=== PATIENT | male | born 1975 | race Caucasian/White ===

== ENCOUNTER 2018-11-13 07:25 | Inpatient (IN) | payer BC, SELFPAY ==
[2018-10-31 10:00] VITALS: BP 176/104; PULSE 70; RESP 16; TEMP 36.6; O2SAT 98; BMI 23.2
--- NOTE | 2018-10-31 10:15 | SDCEKG_ITS ---
Test Reason : Blood Pressure : / mmHG Vent. Rate : 069 BPM Atrial Rate : 069 BPM P-R Int : 150 ms QRS Dur : 074 ms QT Int : 410 ms P-R-T Axes : 070 060 054 degrees QTc Int : 439 ms Normal sinus rhythm with sinus arrhythmia Septal infarct , age undetermined Abnormal ECG When compared with ECG of 31-OCT-2018 10:11, MANUAL COMPARISON REQUIRED, DATA IS UNCONFIRMED Confirmed by JOJO ALANIZ, CL ([id number]), supervising film or videotape editor JEAN LOU ([id number] on 11/01/2018 4:03:41 PM Referred By: Wilfredo Martinez Confirmed By:CL URIBE MD
[2018-10-31 10:51] LABS: Absolute Lymphocyte Count 1.18 X10^3/ul (0.83-4.51); Absolute Neutrophil Count 4.6 X10^3/uL (2.0-7.7); Basophil# 0.02 X10^3/uL; Basophil% 0.3 % (0-1); Eosinophil# 0.03 X10^3/uL; Eosinophils% 0.5 % (0-5); Hematocrit 42.1 % (40-54); Hemoglobin 14.1 g/dl (13.0-16.5); Lymphocyte # 1.18 X10^3/ul (4.0); Lymphocyte % 18.6 % (19-41); Mean Corp Hgb Conc 33.5 g/gl (32-36); Mean Corpuscular Hgb 30.9 pg (27.0-32.0); Mean Corpuscular Volume 92.1 fL (80-94); Mean Platelet Vol. 9.2 fl (6.2-12.0); Monocyte# 0.55 X10^3/uL; Monocyte% 8.7 % (0-10); Neutrophil # 4.56 X10^3/uL (2.7-7.7); Neutrophil % 71.7 % (47-70); POSITIVE COUNT NO; POSITIVE DIFFERENTIAL NO; POSITIVE MORPHOLOGY NO; Platelet Count 301 K/mm3 (150-450); RBC Distribution Width CV 12.3 % (11.6-14.6); RBC Distribution Width SD 41.3 fl (35.1-43.9); Red Blood Count 4.57 M/mm3 (4.6-6.2); White Blood Count 6.4 K/mm3 (4.4-11.0)
[2018-10-31 11:08] LABS: Anion Gap 8 (5-15); BUN 9 mg/dL (7-18); BUN/Creat Ratio 9.4 RATIO (10-20); Chloride 96 mmol/L (98-107); Creatinine, Serum 0.96 mg/dL (0.70-1.30); EST Glomerular Filtration Rate 91 mL/min (>60); Est Glom Filt Rate - Afr Amer 110 mL/min (>60); Estimated Creatinine Clearance 105.67 ml/min; Glucose 106 mg/dL (74-106); Potassium 4.1 mmol/L (3.5-5.1); Sodium Level 129 mmol/L (136-145)
--- NOTE | 2018-10-31 13:19 | HP.PCM_ITS ---
History and Physical DATE OF SURGERY: 11/13/2018 SCHEDULED PROCEDURE: right total hip arthroplasty HISTORY OF PRESENT ILLNESS: This is a 43-year-old male who has been having ongoing pain in his right hip for several years. Pain can reach as high as a 7/10. Pain is aching, sharp, and stabbing. Pain is increased with going up and down stairs, driving, sitting for excision. The time, and walking. He has difficult time with getting dressed. He has fallen, tripped, stumbled due to his right hip pain. Patient states the pain does wake him at night. Patient has had a difficult time with activities of daily living and work duties due to his pain. Patient has tried oral medications consisting of Tylenol and ibuprofen with minimal relief in pain. Patient does drink approximately 2-4 beers a night. He also scuba dives. He denies any history of steroid or medical steroid use chronically. Patient has had MRI of the right hip which does reveal avascular necrosis. Patient denies previous surgery on the right hip. Patient does have medical history pertinent for hypertension. He denies any recent chest pain, shortness of breath, fevers chills, recent infections. We have received surgical clearance from patient's primary care physician. After failing conservative measures and discussing all treatment options with Dr. Wilfredo Martinez, the patient would like to proceed with a right total hip arthroplasty. REVIEW OF SYSTEMS: ROS: Const: Denies anorexia, anxiety, change in appetite, fever and weight change,hard of hearing, and vision problems. CV: Denies chest pain, heart murmur, irregular heartbeat and peripheral vascular disease. Resp: Denies asthma, cough, pneumonia, sleep apnea, SOB, tuberculosis and wheezing. GI: Denies constipation, diarrhea, heartburn, nausea, bloody stools and vomiting, and difficulty swallowing. : Urinary: denies incontinence. Musculo: Reports trouble walking and weakness and limp. Skin: Reports history of shingles and tattoo, but denies Raynaud's. Neuro: Reports numbness/tingling but denies ambulatory dysfunction, dizziness and tremor. Psych: Denies anxiety, depression, insomnia, mental illness and stress. Edwin/Lymph: Denies anemia, bleeding/bruising tendency and past transfusion. Reviewed, no changes. PAST MEDICAL HISTORY: Advance Care Plan: No Advance Directives Effective Date: 01/03/2018 PMH: Medical Problems: High Blood Pressure Accidents: Fracture - Nose,foot,ankle, finger Sports Related Injury - Finger FX Surgical Hx: Appendectomy - [facility] RT Knee Arthroscopy - (12/29/2008) JAGUARIC @ [facility] RT Middle Finger Tendon Repair W/Loose Body Removal - (02/04/2014) MPS @ [facility] Knee Arthroscopy LT - (11/13/2015) [email or web address] Anesthesia Complications: None Assistive Devices: None Reviewed and updated. SOCIAL HISTORY: SH: Marital: .Occupation: [place] [employer] .Work Status: Currently Working.Hand Dominance: Right-handed. Personal Habits: Smoking: Patient has never smoked.Cigarette Use: Never Smoked Cigarettes.Alcohol: Occasionally.Drug Use: Denies Use.Enjoy Exercising: Exercises 1-3 x/month. Reviewed, no changes. VITALS: Ht: 71.5 Wt: 164lb Wt k.390 BMI: 22.6 BP: 164/76 Pulse: 64 Resp: 16 T: 98.2 T: 36.8C ALLERGIES: No Known Drug Allergy MEDICATIONS: Lisinopril 20 mg 1po qday PRE-OP EXAM: General appearance:NORMAL Other: Eyes: Conjunctivae and lids: NORMAL Pupils: ERR Ears, Nose, Mouth, and Throat: NORMAL Other: Inspection of lips, teeth and gums: NORMAL Other: Neck: Examination of neck: no masses noted. Respiratory: Assessment of respiratory effort: NORMAL Other: Auscultation of lungs: clear to auscultation no wheezes, rhonchi or rales. Cardiovascular: Auscultation of heart: regular rate and rhythm, no murmurs, gallops or rubs. Exam of carotid arteries: NORMAL Other: Gastrointestinal: Exam of abdomen: soft, nontender, nondistended bowel sounds present. PHYSICAL EXAMINATION: Patient walks with a significant antalgic gait. He has tenderness to palpation over the lateral right hip. Range of motion right hip: Flexion 85, internal rotation 15, external rotation 20. Sensation intact to light touch. Neurovas cularly intact. IMAGING STUDIES: X-rays were obtained at [facility] on October 31, 2018 including 3 views AP pelvis, AP right hip, and crossfire lateral right hip reveals collapsed avascular necrosis of the right hip with subchondral collapse of the femoral head and flattening of the femoral head. Joint spaces significantly narrowed. MRI of the right hip was obtained and does reveal right hip avascular necrosis with femoral head collapse. IMPRESSION: 1. Right hip avascular necrosis 2. Hypertension PLAN: Dr. Wilfredo Martinez did discuss and review with the patient all treatment options including surgical versus nonsurgical options. Patient does wish to proceed with the above-stated procedure. Potential risks, benefits, and complications of the procedure were discussed in detail including but not limited to , infection, nerve and blood vessel damage, persistent pain, numbness, tingling, paresthesias, blood clot, pulmonary embolism, and requirement for possible further surgery. The patient expressed full understanding and has no further questions for the doctor. Patient does agree to proceed with the above-stated procedure and has signed the surgery consent form. This dictation was created using voice recognition software. Phonetic and/or grammatical errors may exist.. ___ I have re-examined the patient. There are no clinical changes since date of exam. ___ See progress notes for changes. ___ Dictated on admission Date: Time: Signature:
[2018-11-13] VITALS (20 sets, daily range): BP systolic 110–151; BP diastolic 66–94; PULSE 49–87; RESP 14–18; TEMP 36.1–37; O2SAT 98–100; BMI 23.2
--- NOTE | 2018-11-13 06:44 | RAD_ITS ---
STUDY: X-RAY - RIGHT HIP REASON FOR EXAM: Male, 43 years old. Right total anterior hip, postoperative. TECHNIQUE: Frontal pelvis, crosstable lateral hip. COMPARISON: None. FINDINGS: The prosthetic components appear to be normally seated and articulated. No acute fracture. Expected postsurgical features in the surrounding soft tissues. No apparent degenerative features of the left hip. RAD/Hip Min 2 Views (Portable) IMPRESSION: Total hip arthroplasty on the right, appropriate postsurgical features. Correlate operative technique. Electronically Signed: Kaushik Travis MD at 13:18 EST Tel , Service support ,
[2018-11-13] MEDS: Scopolamine 1mg/72hr Patch 1 PATCH TD (07:41)
[2018-11-13] MEDS: oxyCODONE HCl Cr 10 MG Tablet PO (07:55)
[2018-11-13] MEDS: Celecoxib 200 MG Capsule 400 MG PO (07:55)
[2018-11-13] MEDS: Acetaminophen 500 MG Tablet 1000 MG PO ×3 (07:55→21:46)
[2018-11-13] MEDS: Lactated Ringers 1,000 ML 999 ML IV (08:15)
[2018-11-13] MEDS: Cefazolin 2 GM in 0.9% Normal Saline 100 ML IV (09:12)
--- NOTE | 2018-11-13 09:30 | RAD_ITS ---
STUDY: X-RAY - RIGHT HIP REASON FOR EXAM: Male, 43 years old. Right total hip arthroplasty. TECHNIQUE: 2 views of the hip. COMPARISON: None. FINDINGS: The prosthetic components appear to be normally seated and articulated. No visible acute fracture. RAD/Hip 1 view with Pelvis IMPRESSION: Appropriate postsurgical features. Correlate operative technique. Electronically Signed: Kaushik Travis MD at 12:56 EST Tel , Service support ,
--- NOTE | 2018-11-13 10:35 | OP.PCM_ITS ---
Report of Operation Date of Procedure: 11/13/18 Pre-Operative Diagnosis: Right hip avascular necrosis Post-Operative Diagnosis: Right hip avascular necrosis Surgery/Procedure Performed:: Right direct anterior total replacement Description of Surgical Findings:: Stable hip with equal leg length coke worker: Rocael Lyons Type of Anesthesia:: Spinal Anesthesiologist: James Mcdowell Special Medications: 2 g Ancef, 1 g TXA at incision, 1 g TXA closure, 10 mg Decadron, joint cocktail (5 mg Duramorph, 30 mL of 0.5% Ropivicaine, 1000 units of epinephrine, 30 mg of Toradol) Specimen's removed: Bony cuts Estimated Blood Loss (mL): 100 Fluids Replaced: 1400 mL crystalloid Description of Procedure: Components used: 1. Accolade 2 Cheryl femoral stem size 7 127? 2. Cheryl trident acetabular shell size 56 mm 3. [place]field X3 polyethylene F 4. [place] Biolox delta 36mm, 0mm femoral head Brief history operative indications: 43 yo M who failed conservative measures for their hip osteoarthritis. X-rays were consistent with osteoarthritis including joint space narrowing, osteophyte formation and subchondral cysts. Total hip replacement was discussed with the patient with risks and benefits including but not limited to blood loss, DVTs, PEs, neurovascular damage, dislocation, general risks of anesthesia including loss of life. Patient demonstrated an understanding medical clearance is obtained the patient was consented for surgery. Procedure: On the date of procedure the patient's R hip was marked in the preoperative area. Patient was then taken back to the operating room where anesthesia assumed control of the C-spine and airway and administered anesthetic. Patient was transferred to the operating table and placed in the supine position. The hips were placed at the break of the bed and a sacral bump was placed. The R lower extremity was then prepped out in a sterile fashion using chlorhexidine while the surgeon scrubbed. The PA was vital in the positioning of the patient. Upon reentering the room the R lower extremity was draped in the standard orthopedic fashion and the incision was marked. A timeout was called and everyone agreed upon the side, the site, the procedure be performed, antibody given, and patient's identity. At this time incision was made through skin, subcutaneous tissue, and fat down to fascia. The fascia was then incised and the TFL was retracted laterally. A retractor was placed on the lateral border of the femoral neck. Attention was directed to the inferior portion of the approach and all crossing vessels were identified and appropriately coagulated. A retractor was then placed on the medial portion of the femoral neck. The anterior capsule was then cleared of all soft tissue and then H shaped capsulotomy was made. The retractors were then placed inside the capsule. The femoral neck was identified and a cleanup cut was made. At this time a power corkscrew was used to remove the femoral head. Attention was then turned toward the acetabulum where the soft tissues were appropriately retracted and the acetabulum was sequentially reamed to 56 mm. A 56 mm cup was then selected and impacted into place. Acetabular liner was impacted into place and locking mechanism was verified. The position of the acetabular cup was then verified under live fluoroscopy. Attention was then turned to the femur. Soft tissue releases on the medial and lateral femoral neck were appropriately done, the leg was externally rotated and lateralized. A Eckert retractor was placed medially and proximally to the greater trochanter this allowed appropriate visualization and exposure of the femoral canal. Rongeour was then used to remove excess lateral bone. A canal finder and entry broach were used to open the proximal canal. Once we verified we were down the femoral canal we subsequently broached up to a size 7 femur. The appropriate neck was placed in the previously selected head was trialed with a 0 mm neck. Traction was pulled and the hip was reduced with internal rotation. Once it was appropriately reduced and stability was checked. There was minimal shuck, equal leg lengths and appropriate stability with hyperextension and external rotation as well as with 90? flexion and internal rotation. Fluoroscopy was then also used to verify the position of the components and leg lengths using the contralateral side for comparison. The trial components were then dislocated the proximal femur was again exposed and the components were removed from the wound. The final components were verified and opened. The wound was copiously irrigated out with normal saline. The acetabulum was checked for any residual debris. The final components were placed and impacted. Traction and internal rotation were again used to reduce the hip. After adequate reduction the hip remained stable with appropriate leg lengths. The final components were once again checked with live fluoroscopy and were found to be satisfactory. The wound was then copiously irrigated with normal saline once more, and hemostasis was obtained. Closure was then done using #1 Vicryl runner to close the fascia. A 2-0 vicryl interuppted sutures were used to close the subcutaneous skin. A 3-0 Monocryl and Steri-Strips were used for final skin closure. A Silverlon dressing was placed. Patient was awakened by anesthesia and transferred to the [facility]. Patient was then transferred to the PACU for recovery. Postoperative plan: Patient will get 24 hours postop antibiotics. Patient will get in-house physical therapy and will be weight-bear as tolerated. Patient will follow up in office in 2 weeks for a wound check and x-rays. During the course of the procedure the physician assistant counsel played a vital role. His intimate knowledge of my steps in the procedure aided in safe and expedient completion of the procedure. The PA played a vital rolls in positioning particularly in obtaining the appropriate positioning of the sacral bump. The PA was also vital in the retraction of soft tissues during the exposure and especially the femoral work as this is a vital part of the procedure to prevent complications and fractures. The PA was also vital and protecting soft tissues during times of bony cuts and reaming. He also played a vital role in closure with my direct supervision. The PA was also important during reduction and dislocation of the joint and trials intraoperatively. Grafts/Implants Used: Chesterfield Trident 2, Accolade 2 - Complications None - Admit VTE Documentation VTE Present on Admission: No VTE Mechan Device Prophylaxis: SCD's, Thigh High JESSICA Hose VTE Pharm Prophylaxis ordered?: Yes
[2018-11-13] MEDS: Lactated Ringers 1,000 ML 125 ML IV ×2 (13:00→21:22)
[2018-11-13] MEDS: Ketorolac 15 MG/ML Vial IV (14:56)
[2018-11-13] MEDS: oxyCODONE 5 MG Tablet PO ×2 (17:37→21:46)
[2018-11-13] MEDS: Cefazolin 1 GM/50 ML BAG IV (17:39)
[2018-11-13] MEDS: Senna/Docusate Sodium 1 Tablet 2 TABLET PO (21:46)
[2018-11-13] MEDS: Aspirin 81 MG TAB.CHEW PO (21:47)
[2018-11-13] MEDS: Meloxicam 7.5 MG Tablet PO (21:47)
[2018-11-14] MEDS: Ketorolac 15 MG/ML Vial IV (02:21)
[2018-11-14] MEDS: Cefazolin 1 GM/50 ML BAG IV (02:21)
[2018-11-14 02:27] VITALS: BP 139/82; PULSE 51; RESP 16; TEMP 36.1; O2SAT 98
[2018-11-14 05:53] LABS: Hematocrit 33.1 % (40-54); Hemoglobin 11.2 g/dl (13.0-16.5); Mean Corp Hgb Conc 33.8 g/gl (32-36); Mean Corpuscular Hgb 31.1 pg (27.0-32.0); Mean Corpuscular Volume 91.9 fL (80-94); Mean Platelet Vol. 9.2 fl (6.2-12.0); Platelet Count 286 K/mm3 (150-450); RBC Distribution Width CV 11.5 % (11.6-14.6); RBC Distribution Width SD 37.5 fl (35.1-43.9); White Blood Count 13.4 K/mm3 (4.4-11.0)
[2018-11-14 05:55] LABS: Scan Indicated on CBC? Y/N NO
[2018-11-14] MEDS: Lactated Ringers 1,000 ML 125 ML IV (05:59)
[2018-11-14 06:01] LABS: Anion Gap 9 (5-15); BUN 10 mg/dL (7-18); BUN/Creat Ratio 10.9 RATIO (10-20); Calcium,Total 8.7 mg/dL (8.5-10.1); Chloride 100 mmol/L (98-107); Creatinine, Serum 0.92 mg/dL (0.70-1.30); EST Glomerular Filtration Rate 95 mL/min (>60); Est Glom Filt Rate - Afr Amer 115 mL/min (>60); Estimated Creatinine Clearance 110.27 ml/min; Glucose 92 mg/dL (74-106); Potassium 4.3 mmol/L (3.5-5.1); Sodium Level 135 mmol/L (136-145)
--- NOTE | 2018-11-14 06:39 | PCM.PN.ORT ---
Subjective: The patient was sitting in bed upon examination. Patient denies any chest pain, shortness of breath, dizziness, lightheadedness, nausea or vomiting, or calf pain. Pain is controlled on medications. No adverse overnight events. Patient is wishing to go home today. Overall he is doing well. Objective: Vital signs stable and afebrile. Patient is able to plantarflex and dorsiflex actively. Sensation is intact to light touch to saphenous, sural, superficial and deep peroneal, and tibial distribution. Dressing is clean dry and intact. Negative Homans bilaterally, negative signs and symptoms of DVT. - Physical Exam General: Alert, Oriented x3, Cooperative, No apparent distress Vital Signs Temp Pulse Resp BP Pulse Ox 97 F L 51 L 16 139/82 H 98 11/14/18 02:27 11/14/18 02:27 11/14/18 02:27 11/14/18 02:27 11/14/18 02:27 Oxygen Delivery Method Room Air Weight: 75.6 kg Body Mass Index (BMI) 23.2 Intake and Output for Last 24 Hours 11/12/18 11/13/18 11/14/18 23:59 23:59 23:59 Intake Total 2450 / 2450 1501 / 1501 Output Total 650 / 650 Balance 1800 / 1800 1501 / 1501 Laboratory Tests Past 24 Hrs 11/14/18 11/14/18 05:28 05:28 WBC 13.4 H RBC 3.60 L Hgb 11.2 L Hct 33.1 L MCV 91.9 MCH 31.1 MCHC 33.8 RDW 11.5 L RDW Differential 37.5 Plt Count 286 MPV 9.2 Sodium 135 L Potassium 4.3 Chloride 100 Carbon Dioxide 26.0 Anion Gap 9 BUN 10 Creatinine 0.92 Estim Creat Clear Calc 110.27 Est GFR (MDRD) Af Amer 115 Est GFR (MDRD) Non-Af 95 BUN/Creatinine Ratio 10.9 Glucose 92 Calcium 8.7 Medical Necessity - Tobacco Use Smoking Status: Former smoker Assessment/Plan All Active Problems Chest pain (Acute) 1. S/P right direct anterior total hip arthroplasty POD #1 2. Continue Pain Medications: Tylenol and OxyIR 3. DVT Prophylaxis: Aspirin 81 mg twice daily for DVT prophylaxis times 4 weeks 4. PT/OT: Weightbearing as tolerated 5. H & H: 11.2/33.1, asymptomatic 6. Reactive leukocytosis: Currently 13.4, afebrile. Patient did receive Decadron intraoperatively 7. Encouraged Incentive Spirometry 8. Disposition: Plan will be for discharge home today. Patient [facility]. Patient will follow-up per postop instructions. Patient was instructed that he is not to take any of pain medications with alcohol. He voiced understanding agreement.
--- NOTE | 2018-11-14 06:46 | DCINST_ITS ---
Discharge Diet: No Restrictions Discharge Activity: May Not Drive - while taking narcotic pain medications. May shower in (days): 1 - Turned dressing away from water Ice area for (Minutes): 20 - Every 1-2 hours while awake Weight Bearing Status: Weight bearing as tolerated Elevate: Operative Extremity Additional Activity Instructions:: Wear elastic stockings for 2 weeks. DO NOT use alcohol with narcotic pain medication. DO NOT make important decisions while taking narcotic medication. If you have problems with taking your medication (rash, itching, nausea, etc.) call the office at once. Call your doctor if your incision/area has: Increased Pain/ Swelling, Increased Redness, Foul Smelling Discharge Call your doctor if you observe: Fever of 101 or Higher Remove Dressing in (days):: 3 Additional Instructions: Follow-up per [facility] postop instructions While taking pain medications, do not consume any alcohol while on these medications Allergies/Adverse Reactions: Allergies No Known Allergies Allergy (Verified 10/31/18 09:53) Medications to take at Discharge Lisinopril 20 mg PO DAILY 10/31/18 Acetaminophen [Tylenol] 1,000 mg PO Q8 #90 tablet 11/14/18 Aspirin [Aspirin, Baby] 81 mg PO BID #60 tab.chew 11/14/18 Famotidine [Pepcid] 20 mg PO DAILY #30 tablet 11/14/18 Meloxicam [Mobic] 7.5 mg PO BID #60 tablet 11/14/18 Oxycodone [Oxyir] 5 - 10 mg PO Q4H PRN PRN 5 Days #60 tablet 11/14/18 Senna/Docusate Sodium [Senokot-S] 2 tablet PO BID #20 tablet 11/14/18 The following prescriptions were given: Oxycodone [Oxyir] 5 - 10 mg PO Q4H PRN PRN 5 Days #60 tablet PRN Reason: Mod-Severe Pain (4-10/10) Acetaminophen [Tylenol] 1,000 mg PO Q8 #90 tablet Famotidine [Pepcid] 20 mg PO DAILY #30 tablet Aspirin [Aspirin, Baby] 81 mg PO BID #60 tab.chew Meloxicam [Mobic] 7.5 mg PO BID #60 tablet Senna/Docusate Sodium [Senokot-S] 2 tablet PO BID #20 tablet Primary Care Physician: Daija Art PA [Primary Care Provider] - Test Results: Test results from this visit will be discussed in further detail at your follow- up appointment, if applicable. Please Follow Up With: [facility] When: 11/16/18 @ 8:00 am Please Follow Up With: Rocael Lyons PA-C When: 11/26/18 @ 9:00 am
[2018-11-14] MEDS: Acetaminophen 500 MG Tablet 1000 MG PO (06:50)
[2018-11-14] MEDS: oxyCODONE 5 MG Tablet PO ×2 (06:51→11:35)
[2018-11-14 07:30] VITALS: BP 121/78; PULSE 59; RESP 16; TEMP 36.6; O2SAT 99
[2018-11-14 08:28] VITALS: O2SAT 97
[2018-11-14] MEDS: Aspirin 81 MG TAB.CHEW PO (10:17)
[2018-11-14] MEDS: Lisinopril 20 MG Tablet PO (10:18)
[2018-11-14] MEDS: Senna/Docusate Sodium 1 Tablet 2 TABLET PO (10:18)
[2018-11-14] MEDS: Famotidine 20 MG Tablet PO (10:18)
[2018-11-14] MEDS: Meloxicam 7.5 MG Tablet PO (10:18)
--- NOTE | 2018-11-14 10:40 | CASEMGMT ---
CARLOS DIXON Face to Face with patient for initial transition planning/care coordination assessment. RN ZACK introduced self and role at [facility]. Patient lying in bed, alert and oriented. Patient willing to participate in assessment and is able to answer all questions appropriately. Care providers, pharmacy, and demographics verified. Patient wishes to discharge home and is setup with [facility] for outpatient therapy beginning Monday11/16/18 with family providing transportation. Patient states he has no further needs or concerns at this time. CM to follow for discharge planning needs that may arise. PCP: [facility] Specialists: None Preferred Pharmacy: [facility] Insurance: [place] Prescription Benefit: yes Living Will/HPOA: None LNOK: Living Arrangements: Patient lives with in split level home with railings on stairs. Patient is independent at home. Transportation: Family DME/HHC: Patient has shower chair, toilet riser, cane, and walker at home. Denies oxygen, neb, bipap, or cpap. Patient states he has outpatient therapy scheduled for Monday with [facility]. Disposition Plan: Patient to discharge home with outpatient therapy, family support, and follow-up plans in place. Nelida KONG, RN, CM
[2018-11-14 13:49] VITALS: BP 108/57; PULSE 75; RESP 16; TEMP 37; O2SAT 97
== END 2018-11-14 14:15 | disposition home or self-care (01) | DRG 470 ==
PROVIDERS: Admitting Provider Specialist; Family Provider Physician Assistant; PCP Physician Assistant; Referring Provider Specialist; Visit Provider Specialist
PROC: 0SR904A Replacement of Right Hip Joint with Ceramic on Polyethylene Synthetic Substitute, Uncemented, Open Approach (ICD-10-PCS; CPT 27284; principal; 2018-11-13 09:05)
DX: M87.851 Other osteonecrosis, right femur (principal); I10 Essential (primary) hypertension; Z87.891 Personal history of nicotine dependence
CPT/HCPCS: 36415; 73501; 73502; 76000; 80048; 85025; 85027; 87081; 93005; 94762; 97110; 97162; 97165; 97530; 97802; 99251; C1776; J7120; A4216; G0463

== ENCOUNTER 2019-06-26 20:27 | Inpatient (IN) | payer BC, SELFPAY ==
[2018-11-13 14:21] VITALS: BMI 23.2
[2019-06-26 20:28] VITALS: BP 129/81; PULSE 74; RESP 18; TEMP 36.6; O2SAT 100; BMI 20.9
--- NOTE | 2019-06-26 22:02 | ED.RN ---
PT C/O CRAMPING IN HANDS, LEGS, AND ABD AREA. DENIES PAIN AT THIS TIME.
--- NOTE | 2019-06-26 22:19 | EKG12_ITS ---
Test Reason : HEAT EXHAUSTION Blood Pressure : / mmHG Vent. Rate : 057 BPM Atrial Rate : 057 BPM P-R Int : 140 ms QRS Dur : 082 ms QT Int : 444 ms P-R-T Axes : 051 068 068 degrees QTc Int : 432 ms Sinus bradycardia Otherwise normal ECG Confirmed by BENNY ALANIZ, GORDO ([id number]), continuity editor RANDALL GAMBINO ([id number]) on 06/28/2019 11:45:54 AM Referred By: NAHEED Confirmed By:BUD ZAPATA MD
--- NOTE | 2019-06-26 22:19 | ED.VIS.GEN ---
History of Present Illness Chief Complaint: Dizziness Narrative: Patient is a 44-year-old male who presents with nausea vomiting and muscle aches. 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 It was unusually hot for the time of year today. He began to feel lightheaded while at work. He was trying to drink plenty of water and then drank some Gatorade but vomited. He has had multiple episodes of nonbloody nonbilious emesis today. No diarrhea. He also complains of diffuse myalgias and muscle cramping. No chest pain or shortness of breath no abdominal pain. No fevers. No recent illness. He is treated for hypertension but denies any other medical history. Past Medical History - Allergies and Home Meds Allergies/Adverse Reactions: Allergies No Known Allergies Allergy (Verified 06/26/19 20:31) Primary Care Physician: Daija Art PA [Primary Care Provider] - Past Medical History: - - Hypertension Smoking Status: Never smoker Review of Systems All systems negative except as indicated General: Denies: Fever Cardiovascular: Denies: Chest pain Respiratory: Denies: Dyspnea Gastrointestinal: Reports: Nausea, Vomiting. Denies: Abdominal pain, Diarrhea Musculoskeletal: Reports: Myalgias Neurological: Reports: - - Lightheaded Physical Exam Vital Signs/Narrative: Vital Signs Temp Pulse Resp BP Pulse Ox 06/26/19 20:28 97.9 F 74 18 129/81 H 100 Inital Vital Signs reviewed: Yes General: Well nourished Head: Normocephalic Eyes: EOMI ENT: Moist mucous membranes Neck: Supple Cardiovascular: Regular rate, Regular rhythm Respiratory: No distress, CTA bilaterally Abdomen: Soft, Nontender, Nondistended Extremities: Nontender, No edema Skin: Normal color Neurological: Alert, Normal Strength, Normal Sensation Psychological: Normal affect Diagnostic/Tx/Re-eval Laboratory Tests 06/26/19 06/26/19 Range/Units 22:36 22:36 WBC 15.2 H (4.4-11.0) K/mm3 RBC 5.08 (4.6-6.2) M/mm3 Hgb 16.3 (13.0-16.5) g/dL Hct 47.6 (40-54) % MCV 93.7 (80-94) fL MCH 32.1 H (27.0-32.0) pg MCHC 34.2 (32-36) g/dL RDW Std Deviation 40.7 (35.1-43.9) fl RDW Coeff of David 11.7 (11.6-14.6) % Plt Count 288 (150-450) K/mm3 MPV 9.3 (6.2-12.0) fl Immature Gran % (Auto) 0.400 (0.0-0.9) % Neut % (Auto) 90.4 H (47-70) % Lymph % (Auto) 2.9 L (19-41) % [place] % (Auto) 5.3 (0-10) % Eos % (Auto) 0.9 (0-5) % Baso % (Auto) 0.1 (0-1) % Absolute Neuts (auto) 13.7 H (2.0-7.7) X10^3/uL Absolute Lymphs (auto) 0.44 L (0.83-4.51) X10^3/uL Nucleated RBC % 0 (0-5) % Sodium 135 L (136-145) mmol/L Potassium 4.2 (3.5-5.1) mmol/L Chloride 99 (98-107) mmol/L Carbon Dioxide 27.0 (21.0-32.0) mmol/L Anion Gap 9 (5-15) BUN 20 H (7-18) mg/dL Creatinine 2.23 H (0.70-1.30) mg/dL Estim Creat Clear Calc 40.84 ml/min Est GFR (MDRD) Af Amer 41 L (>60) mL/min Est GFR (MDRD) Non-Af 34 L (>60) mL/min BUN/Creatinine Ratio 9.0 L (10-20) RATIO Glucose 123 H (74-106) mg/dL Calcium 10.4 H (8.5-10.1) mg/dL - Medical Decision Making Patient initially treated with IV fluids, Toradol, Zofran. He feels markedly better on reevaluation. Labs as above notable for white count of 15.2, creatinine of 2.2. Previous creatinines have been normal. Patient notes that his labor is very physical. This raised concern for rhabdomyolysis with acute kidney injury. I have added on a CPK. Patient will need hospitalization regardless. I spoke to the hospitalist who agreed to admit and will follow up on CPK and also requested that I add on liver function studies. Patient will be treated with aggressive IV fluid hydration. ED Disposition - Plan for ED Patient: Disposition: Acute Care Hospital [facility] Diagnosis: SILVESTRE (acute kidney injury) Referrals: Daija Art PA [Primary Care Provider] -
[2019-06-26] MEDS: 0.9% Normal Saline 1,000 ML 999 ML IV ×2 (22:35→23:40)
[2019-06-26] MEDS: Ondansetron 4 MG/2 ML Vial IV (22:35)
[2019-06-26] MEDS: Ketorolac 30 MG/ML Syringe IV (22:35)
[2019-06-26 22:49] LABS: Absolute Lymphocyte Count 0.44 X10^3/uL (0.83-4.51); Absolute Neutrophil Count 13.7 X10^3/uL (2.0-7.7); Basophil# 0.02 X10^3/uL; Basophil% 0.1 % (0-1); Eosinophil# 0.14 X10^3/uL; Eosinophils% 0.9 % (0-5); Hematocrit 47.6 % (40-54); Hemoglobin 16.3 g/dL (13.0-16.5); Lymphocyte # 0.44 X10^3/ul (4.0); Lymphocyte % 2.9 % (19-41); Mean Corp Hgb Conc 34.2 g/dL (32-36); Mean Corpuscular Hgb 32.1 pg (27.0-32.0); Mean Corpuscular Volume 93.7 fL (80-94); Mean Platelet Vol. 9.3 fl (6.2-12.0); Monocyte% 5.3 % (0-10); NRBC Flagged by Analyzer 0 % (0-5); Neutrophil # 13.71 X10^3/uL (2.7-7.7); Neutrophil % 90.4 % (47-70); POSITIVE DIFFERENTIAL YES; Platelet Count 288 K/mm3 (150-450); RBC Distribution Width CV 11.7 % (11.6-14.6); RBC Distribution Width SD 40.7 fl (35.1-43.9); Red Blood Count 5.08 M/mm3 (4.6-6.2); White Blood Count 15.2 K/mm3 (4.4-11.0)
[2019-06-26 22:52] LABS: Differential Indicated SCAN CRITERIA MET
[2019-06-26 23:02] LABS: Anion Gap 9 (5-15); BUN 20 mg/dL (7-18); Calcium,Total 10.4 mg/dL (8.5-10.1); Chloride 99 mmol/L (98-107); Creatinine, Serum 2.23 mg/dL (0.70-1.30); EST Glomerular Filtration Rate 34 mL/min (>60); Est Glom Filt Rate - Afr Amer 41 mL/min (>60); Estimated Creatinine Clearance 40.84 ml/min; Glucose 123 mg/dL (74-106); Potassium 4.2 mmol/L (3.5-5.1); Sodium Level 135 mmol/L (136-145)
[2019-06-26 23:11] LABS: Differential Comment SCANNED; Platelet Estimate ADEQUATE (ADEQ); Red Cell Morphology NORM C+C NORMAL (NORM C&C)
--- NOTE | 2019-06-26 23:23 | PCM.HP.STD ---
Problem List (1) SILVESTRE (acute kidney injury) Status: Acute (2) Leukocytosis Status: Acute Qualifiers: Leukocytosis type: unspecified Qualified Code(s): D72.829 - Elevated white blood cell count, unspecified (3) Hyponatremia Status: Acute (4) Alcohol use disorder Status: Chronic (5) HTN (hypertension) Status: Chronic Qualifiers: Hypertension type: essential hypertension Qualified Code(s): I10 - Essential (primary) hypertension History of Present Illness Date of Admission: 06/26/19 Chief Complaint: N/V, lightheaded The patient is a 44 y/o M w/ PMHx: HTN, Heavier EtOH usage who presents to the 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 He denies any recent GI illnesses, no diarrhea, no ill contacts. Work-up in the ED included T 97.9, heart rate 74, BP 129/81, respiratory rate 18, 9% room air, CBC with WBC 15.2, hemoglobin 16.3, platelet 288 with left shift, BMP with sodium 135, BUN/creatinine 20/2.23 with prior last known 0.9, glucose 123, calcium 10.4. In the ED patient ministered normal saline, Zofran, Toradol. Pending total creatinine kinase upon request evaluation of patient. Also discussed with ED physician and hepatic profile added given acute presentation with T bili 1.20, D bili 0.38 otherwise not market appearing. 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 Psychiatric History: No pertinent psych hx Lives: Spouse/ Significant Other Smoking Status: Never smoker Tobacco Use: Non-smoker Alcohol: Heavy - Patient notes consumption of at least 3 to 412 ounce beers daily. Drugs: Marijuana - Patient admits to occasional cannabis usage. - *Family History Maternal History Items: - - Patient with maternal family history of heart disease, hypertension. Paternal History Items: - - Patient notes a paternal family history of hypertension, diabetes, hyperlipidemia. Review of Systems Constitutional: Reports: Malaise, Weakness, Fatigue. Denies: Chills, Fever, Weight Change HEENT: Denies: Head Aches, Sinus Congestion, Sinus Drainage Cardiovascular: Reports: Light Headedness. Denies: Chest Pain, Palpitations Respiratory: Denies: Cough, Shortness of breath at rest, Sputum production Gastrointestinal: Reports: Nausea, Vomiting. Denies: Abdominal Pain Genitourinary: Denies: Dysuria Musculoskeletal: Reports: Muscle pain. Denies: Joint Pain, Joint Tenderness Skin: Denies: Rash, Wounds Neurological: Denies: Numbness, Tingling, Focal weakness Psychiatric: Denies: Anxiety, Depression, Homicidal Ideations, Suicidal Ideations Hematologic/ Lymphatic: Denies: Easy Bruising, Easy Bleeding VTE Information - Inpt Only VTE Present on Admission: No VTE Mechan Device Prophylaxis: None VTE Pharm Prophylaxis ordered?: No Reason prophylaxis not ordered:: Treatment Not Indicated Patient Problems: Active and Suspected Problems SILVESTRE (acute kidney injury) (Acute) Leukocytosis (Acute) Hyponatremia (Acute) Subjective: Seated upright in the ED bed, fatigued appearing, notes less nauseous and feeling improved since initial presentation with regimen. Objective: Physical Examination: General: awake, alert, oriented x 3 and cooperative, seated upright in the ED bed in no apparent distress. Skin: normal color, turgor, no icterus, cyanosis. HEENT: AT/NC, EOMI, PERRLA, dry MM, no carotid bruits or JVD noted. Lungs: CTA bilaterally, moderate effort, moderate decrease BL bases, no rales, ronchi or wheezing. Heart: Regular rate and rhythm; no gallop, rub audible. Abdomen: soft, NTTP, ND, normal BS, no HSM. Extremities: no cyanosis, clubbing, or edema. Neurological: patient awake, alert, oriented x 3; cognitive function intact; pupils equally reactive to light and accomodation; cranial nerves II-XII grossly normal, moving all 4 extremities, no focal deficits, strength moderately global decrease secondary to acute presentation. Psychiatric: affect appears fatigued, no acute evidence of depressive or anxiety feelings. - Physical Exam Vital Signs Temp Pulse Resp BP Pulse Ox 97.9 F 74 18 129/81 H 100 06/26/19 20:28 06/26/19 20:28 06/26/19 20:28 06/26/19 20:28 06/26/19 20:28 Oxygen Delivery Method Room Air Weight: 150 lb 9.211 oz Body Mass Index (BMI) 20.9 Laboratory Tests Past 24 Hrs 06/26/19 06/26/19 22:36 22:36 WBC 15.2 H RBC 5.08 Hgb 16.3 Hct 47.6 MCV 93.7 MCH 32.1 H MCHC 34.2 RDW Std Deviation 40.7 RDW Coeff of David 11.7 Plt Count 288 MPV 9.3 Immature Gran % (Auto) 0.400 Neut % (Auto) 90.4 H Lymph % (Auto) 2.9 L Glenn % (Auto) 5.3 Eos % (Auto) 0.9 Baso % (Auto) 0.1 Absolute Neuts (auto) 13.7 H Absolute Lymphs (auto) 0.44 L Nucleated RBC % 0 Differential Comment SCANNED Platelet Estimate ADEQUATE RBC Morphology NORM C+C Sodium 135 L Potassium 4.2 Chloride 99 Carbon Dioxide 27.0 Anion Gap 9 BUN 20 H Creatinine 2.23 H Estim Creat Clear Calc 40.84 Est GFR (MDRD) Af Amer 41 L Est GFR (MDRD) Non-Af 34 L BUN/Creatinine Ratio 9.0 L Glucose 123 H Calcium 10.4 H Assessment/Plan All Active Problems SILVESTRE (acute kidney injury) (Acute) Leukocytosis (Acute) Hyponatremia (Acute) Chest pain (Acute) The patient is a 44 y/o M w/ PMHx: HTN, Heavier EtOH usage who presents to the 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 1. Lightheadedness, dizziness with nausea, emesis as well as myalgias suspected secondary to heatstroke: As noted concurrent SILVESTRE, hyponatremia, will admit to medical surgical floor, T CK pending, continue aggressive hydration, fall precautions, trend CBC, BMP as well as repeat T CK in a.m. with initial pending, PRN nausea, pain regimen. UDS requested and pending. 2. Acute kidney injury: Secondary to poor oral intake, heat exposure. Admission BUN/Cr 20/2.23, prior baseline creatinine noted to be 0.9. Will hydrate, hold nephrotoxic medications and repeat chemistry in AM. We will obtain UDS, pending TCK, if no improvement would plan FeNa and renal ultrasound assessment. 3. Leukocytosis, unclear etiology: Admission CBC with WBC 15.2 with left shift, likely component with dehydration as well as nausea and emesis, continue to aggressively hydrate, repeat CBC in a.m. 4. Hyponatremia, hypovolemic, mild: Admission sodium 135, likely secondary to acute presentation with nausea, emesis, dehydration, will continue to aggressively hydrate, repeat BMP in a.m. 5. Hypertension: We will hold home lisinopril regimen given acute kidney injury, PRN IV hydralazine. 6. Alcohol use disorder, heavy consumption: Patient notes routine consumption of at least 3-4, 12 ounce beers per day. Encouraged patient to reduce his daily consumption of alcohol intake. 7. DVT prophylaxis: Low risk, ambulation. Code Visit Inpatient E&M: 60796 Init Hosp L3
[2019-06-26 23:51] LABS: AST(SGOT) 31 U/L (15-37); Alanine Aminotransfer ALT/SGPT 29 U/L (16-61); Albumin, Serum 4.8 g/dL (3.2-5.0); Alkaline Phosphatase 70 U/L (45-117); Bilirubin, Direct 0.38 mg/dL (0.00-0.30); CPK Total, Creatine Kinase 235 U/L (39-308); Globulin 4.2 g/dL (2.2-4.2)
[2019-06-27 00:22] VITALS: BMI 22.0
[2019-06-27 00:23] VITALS: BP 133/86; PULSE 70; RESP 18; TEMP 36.6; O2SAT 99
[2019-06-27] MEDS: 0.9% Normal Saline 1,000 ML 250 ML IV ×6 (00:45→20:13)
[2019-06-27 05:31] LABS: Absolute Lymphocyte Count 1.25 X10^3/uL (0.83-4.51); Absolute Neutrophil Count 7.2 X10^3/uL (2.0-7.7); Basophil# 0.01 X10^3/uL; Basophil% 0.1 % (0-1); Eosinophil# 0.01 X10^3/uL; Eosinophils% 0.1 % (0-5); Hematocrit 39.5 % (40-54); Hemoglobin 13.4 g/dL (13.0-16.5); Lymphocyte # 1.25 X10^3/ul (4.0); Lymphocyte % 13.3 % (19-41); Mean Corp Hgb Conc 33.9 g/dL (32-36); Mean Corpuscular Hgb 32.3 pg (27.0-32.0); Mean Corpuscular Volume 95.2 fL (80-94); Mean Platelet Vol. 9.4 fl (6.2-12.0); Monocyte# 0.89 X10^3/uL; Monocyte% 9.5 % (0-10); NRBC Flagged by Analyzer 0 % (0-5); Neutrophil # 7.18 X10^3/uL (2.7-7.7); Neutrophil % 76.6 % (47-70); Platelet Count 221 K/mm3 (150-450); RBC Distribution Width CV 11.8 % (11.6-14.6); RBC Distribution Width SD 40.7 fl (35.1-43.9); Red Blood Count 4.15 M/mm3 (4.6-6.2); White Blood Count 9.4 K/mm3 (4.4-11.0)
[2019-06-27 06:03] LABS: ALB/GLOB Ratio 1.1 RATIO (0.9-2.4); AST(SGOT) 27 U/L (15-37); Alanine Aminotransfer ALT/SGPT 22 U/L (16-61); Albumin, Serum 3.2 g/dL (3.2-5.0); Alkaline Phosphatase 50 U/L (45-117); Anion Gap 6 (5-15); BUN 21 mg/dL (7-18); BUN/Creat Ratio 12.3 RATIO (10-20); CPK Total, Creatine Kinase 204 U/L (39-308); Chloride 108 mmol/L (98-107); Creatinine, Serum 1.71 mg/dL (0.70-1.30); EST Glomerular Filtration Rate 46 mL/min (>60); Est Glom Filt Rate - Afr Amer 56 mL/min (>60); Estimated Creatinine Clearance 55.88 ml/min; Glucose 107 mg/dL (74-106); Potassium 4.1 mmol/L (3.5-5.1); Protein, Total 6.2 g/dL (6.4-8.2); Sodium Level 138 mmol/L (136-145)
[2019-06-27 06:30] VITALS: BP 123/78; PULSE 75; RESP 18; TEMP 36.8; O2SAT 99
[2019-06-27 07:00] VITALS: O2SAT 97
[2019-06-27 07:38] LABS: Amphetamine Urine VISTA NEGATIVE (<1000 ng/mL); Barbiturate Urine VISTA NEGATIVE (< 200 ng/mL); Benzodiazepine Urine VISTA NEGATIVE (< 200 ng/mL); Cocaine Urine VISTA NEGATIVE (< 300 ng/mL); Ecstacy Urine VISTA NEGATIVE (< 500 ng/mL); Methadone Urine VISTA NEGATIVE (< 300 ng/mL); PCP Urine VISTA NEGATIVE (< 25 ng/mL); THC Urine VISTA POSITIVE (< 50 ng/mL); Vista UDS pH Range 7
[2019-06-27 08:04] LABS: Color, Urine Yellow (Yellow); Glucose, Dipstick Normal (Normal); Ketone-Dipstick 15 mg/dl (Negative); Leukocyte Esterase-Dipstick Negative /ul (Negative); Nitrite-Dipstick Negative (Negative); Occult Blood-Urine Negative /ul (Negative); Protein-Dipstick 100 mg/dl (Negative); Specific Gravity, Urine 1.025 (1.002-1.030); Urine Bilirubin Dipstick Negative (Negative); Urine Clarity Clear (Clear); Urine Urobilinogen 1 mg/dl (Normal)
[2019-06-27 08:20] VITALS: BP 129/78; PULSE 58; RESP 16; TEMP 36.4; O2SAT 100
[2019-06-27 08:20] LABS: Red Blood Cells-Urine 0-5 SEEN /hpf (0-5); White Blood Cells 0-5 SEEN /hpf (0-5)
[2019-06-27 08:21] LABS: Bacteria 1+ /hpf (None Seen); Fine Granular Cast- Urine 0-5 SEEN /lpf (0-5); Hyaline Cast 0-5 SEEN /lpf (0-5); Mucous, Urine 1+ /hpf (<or=2+); Squamous Epithelial Cells - UA 0-5 SEEN /hpf (0-5)
--- NOTE | 2019-06-27 09:30 | PN_ITS ---
Patient Problems: Active and Suspected Problems SILVESTRE (acute kidney injury) (Acute) Leukocytosis (Acute) Hyponatremia (Acute) Subjective: Patient seen and examined. He was admitted with a complaint of lightheadedness, nausea and vomiting as well as new onset myalgia. He had been working outside from morning and has been exposed to heat and not keeping well hydrated. Creatinine was 2.23 on admission with baseline from 0.9. Calcium was 10.4 but CPK was within normal limits. He was admitted and managed for SILVESTRE likely prerenal due to dehydration and heatstroke. Patient seen and examined this morning. He feels much better and has no complaints. Review of systems otherwise negative. Labs and vitals reviewed. Vitals/I&O's: Vital Signs Temp Pulse Resp BP Pulse Ox 98.3 F 75 18 123/78 H 97 06/27/19 06:30 06/27/19 06:30 06/27/19 06:30 06/27/19 06:30 06/27/19 07:00 Oxygen Delivery Method Room Air Weight: 158 lb Body Mass Index (BMI) 22.0 Intake and Output for Last 24 Hours 06/25/19 06/26/19 06/27/19 23:59 23:59 23:59 Intake Total 1000 / 1000 3604.17 / 3604.17 Balance 1000 / 1000 3604.17 / 3604.17 General: Alert, Oriented x3, Cooperative, No apparent distress HEENT: Atraumatic, PERRLA, EOMI, Normocephalic Oral: Moist Mucosa Neck: Supple, No JVD, Negative Carotid Bruits Lungs: Clear to auscultation, Normal air movement Cardiovascular: Regular rate, Regular Rhythm, Normal S1, Normal S2, No murmurs Abdomen: Bowel Sounds Present, Soft, Non Tender, Non-Distended, No Hepato- splenomegaly Extremities: No clubbing, No cyanosis, No edema, Capillary Refill Less than 3 Seconds Skin: No rashes, No breakdown Musculoskeletal: No Tenderness to Palpation of Joints or Extremities Lymphatic: No Cervical, Supraclavicular, or Inguinal Adenopathy Neurological: Cranial nerves II-XII grossly intact, Neuro grossly intact, Motor Exam 5/5 strength throughout Psych/Mental Status: Normal Affect, Appropriate, Alert and oriented to time, place, person, mood and affect Laboratory Results 06/26/19 22:36: WBC 15.2 H, RBC 5.08, Hgb 16.3, Hct 47.6, MCV 93.7, MCH 32.1 H, MCHC 34.2, RDW Std Deviation 40.7, RDW Coeff of David 11.7, Plt Count 288, MPV 9.3, Immature Gran % (Auto) 0.400, Neut % (Auto) 90.4 H, Lymph % (Auto) 2.9 L, [place] % (Auto) 5.3, Eos % (Auto) 0.9, Baso % (Auto) 0.1, Absolute Neuts (auto) 13.7 H, Absolute Lymphs (auto) 0.44 L, Nucleated RBC % 0, Differential Comment SCANNED, Platelet Estimate ADEQUATE, RBC Morphology NORM C+C 06/26/19 22:36: Sodium 135 L, Potassium 4.2, Chloride 99, Carbon Dioxide 27.0, Anion Gap 9, BUN 20 H, Creatinine 2.23 H, Estim Creat Clear Calc 40.84, Est GFR (MDRD) Af Amer 41 L, Est GFR (MDRD) Non-Af 34 L, BUN/Creatinine Ratio 9.0 L, Glucose 123 H, Calcium 10.4 H 06/26/19 22:36: Total Bilirubin 1.20 H, Direct Bilirubin 0.38 H, AST 31, ALT 29, Alkaline Phosphatase 70, Total Creatine Kinase 235, Total Protein 9.0 H, Albumin 4.8, Globulin 4.2 06/27/19 05:16: WBC 9.4, RBC 4.15 L, Hgb 13.4, Hct 39.5 L, MCV 95.2 H, MCH 32.3 H, MCHC 33.9, RDW Std Deviation 40.7, RDW Coeff of David 11.8, Plt Count 221, MPV 9.4, Immature Gran % (Auto) 0.400, Neut % (Auto) 76.6 H, Lymph % (Auto) 13.3 L, [place] % (Auto) 9.5, Eos % (Auto) 0.1, Baso % (Auto) 0.1, Absolute Neuts (auto) 7.2, Absolute Lymphs (auto) 1.25, Nucleated RBC % 0 06/27/19 05:16: Sodium 138, Potassium 4.1, Chloride 108 H, Carbon Dioxide 24.0, Anion Gap 6, BUN 21 H, Creatinine 1.71 H, Estim Creat Clear Calc 55.88, Est GFR (MDRD) Af Amer 56 L, Est GFR (MDRD) Non-Af 46 L, BUN/Creatinine Ratio 12.3, Glucose 107 H, Calcium 8.0 L, Total Bilirubin 1.00, AST 27, ALT 22, Alkaline Phosphatase 50, Total Creatine Kinase 204, Total Protein 6.2 L, Albumin 3.2, Globulin 3.0, Albumin/Globulin Ratio 1.1 06/27/19 07:15: Urine Color Yellow, Urine Clarity Clear, Urine pH 5.0, Ur Specific [place] 1.025, Urine Protein 100 H, Urine Glucose (UA) Normal, Urine Ketones 15 H, Urine Occult Blood Negative, Urine Nitrite Negative, Urine Bilirubin Negative, Urine Urobilinogen 1 H, Ur Leukocyte Esterase Negative, Urine RBC 0-5 SEEN, Urine WBC 0-5 SEEN, Ur Squamous Epith Cells 0-5 SEEN, Urine Bacteria 1+, Hyaline Casts 0-5 SEEN, Fine Granular Casts 0-5 SEEN, Urine Mucus 1+ 06/27/19 07:15: Urine Opiates Screen NEGATIVE, Urine Methadone Screen NEGATIVE, Ur Barbiturates Screen NEGATIVE, Ur Phencyclidine Scrn NEGATIVE, Ur Amphetamines Screen NEGATIVE, U Methamphetamin-MDMA NEGATIVE, U Benzodiazepines Scrn NEGATIVE, Urine Cocaine Screen NEGATIVE, U Cannabinoids Screen POSITIVE H, Ur Drug Screen Comment Current Medications Acetaminophen (Tylenol) 650 mg PO Q6H PRN PRN PRN Reason: Non-cardiac pain (mod-severe) Hydrocodone Bitart/Acetaminophen ([place]imes 5mg-325mg) 1 - 2 tablet PO Q6H PRN PRN PRN Reason: MOD-SEVERE PAIN (4-1010) Al Hydroxide/Mg Hydroxide (Mylanta Ii) 15 - 30 ml PO Q4H PRN PRN PRN Reason: INDIGESTION Albuterol Sulfate (Ventolin Aerosols) 2.5 mg INHALATION Q2H PRN PRN PRN Reason: dyspnea, wheezing Dextrose (D50w Syringe) 0 gm IV X1 PRN; Protocol PRN Reason: Hypoglycemia Glucagon () 1 mg IM .X1 PRN PRN Reason: Hypoglycemia Hydralazine HCl (Apresoline Iv) 10 mg IV Q4H PRN PRN PRN Reason: SBP > 160 Sodium Chloride () 1,000 mls @ 250 mls/hr IV .Q4H NATY Last Admin: 06/27/19 08:22 Dose: 250 mls/hr Documented by: Magnesium Hydroxide (Milk Of Magnesia) 30 ml PO DAILY PRN PRN Reason: Constipation Morphine Sulfate () 1 - 2 mg IV Q4H PRN PRN PRN Reason: PAIN Nitroglycerin (Nitrostat) 0.4 mg SUBLINGUAL Q5M PRN PRN Reason: CARDIAC/CHEST PAIN Ondansetron HCl (Zofran) 4 mg IV Q8H PRN PRN PRN Reason: NAUSEA/VOMITING Sodium Chloride () 10 - 40 ml IV UD PRN PRN Reason: SALINE FLUSH Medical Necessity - Tobacco Use Smoking Status: Never smoker Tobacco Use: Non-smoker Assessment/Plan All Active Problems SILVESTRE (acute kidney injury) (Acute) Leukocytosis (Acute) Hyponatremia (Acute) Chest pain (Acute) 1. SILVESTRE * pre-renal, due to dehydration. * Cr was 2.23 on admission, now down to 1.71 with IVF administration * continue hydration with IVF * CPK was WNL * 2. Heatstroke * lightheadedness, dizziness, nausea and vomiting as well as myalgias have resolved. * continue hydrating with IVF and monitor * 3. Leucocytosis: likely reactive; resolved 4. Hypertension: controlled. Lisinopril was held o/a of SILVESTRE. will monitor. IV hydralazine prn 5. Alcohol abuse: * admits to heavy consumption of alcohol. drinks ~ 3-4 12oz beers daily. * patient counselled on quitting alcohol use. * DVT prophylaxis: SCDs Code Visit Inpatient E&M: 62591 Subs Hosp L2
--- NOTE | 2019-06-27 09:30 | CASEMGMT ---
RN ZACK Face to Face with patient for initial transition planning/care coordination assessment. RN CM introduced self and role at [facility]. Patient lying in bed, alert and oriented. Patient willing to participate in assessment and is able to answer all questions appropriately. Care providers, pharmacy, and demographics verified. Patient wishes to discharge home, denies need for home health at this time. Patient states he has no further needs or concerns at this time. CM to follow for discharge planning needs that may arise. PCP: Rubnes Specialists: None Preferred Pharmacy: [facility] Insurance: [employer] Prescription Benefit: yes Living Will/HPOA: none LNOK: Living Arrangements: Patient lives with in split level home, independent at home. Transportation: self/ DME/HHC: Denies any DME or previous HHC Disposition Plan: Patient to discharge home with family support and follow-up plans in place. Nelida KONG, RN, CM
--- NOTE | 2019-06-27 10:59 | CASEMGMT ---
Social Work Note Charge Nurse updated this worker that pt drinks alcohol daily. SW reviewed H+P, pt drinks 3-4 12 ounce beers daily. SW met with pt, introduced self and role at [facility]. PT is alert and orientated x3. Pt denied any MH or substance abuse hx. Pt denied additional needs or concerns at this time. Nelida Galloway CLAY [employer] PRESS MIXER OPERATOR, BLAST FURNACE CHECKER
[2019-06-27 14:05] VITALS: BP 118/75; PULSE 61; RESP 16; TEMP 36.6; O2SAT 100
[2019-06-27 20:01] VITALS: BP 151/87; PULSE 54; RESP 16; TEMP 37.4; O2SAT 100
[2019-06-28] MEDS: 0.9% Normal Saline 1,000 ML 250 ML IV ×3 (00:10→07:45)
[2019-06-28 02:09] VITALS: BP 147/73; PULSE 71; RESP 16; TEMP 37.1; O2SAT 100
[2019-06-28 05:52] LABS: Absolute Lymphocyte Count 1.31 X10^3/uL (0.83-4.51); Basophil# 0.03 X10^3/uL; Basophil% 0.5 % (0-1); Eosinophil# 0.04 X10^3/uL; Eosinophils% 0.7 % (0-5); Hematocrit 35.3 % (40-54); Hemoglobin 11.7 g/dL (13.0-16.5); Lymphocyte # 1.31 X10^3/ul (4.0); Lymphocyte % 22.1 % (19-41); Mean Corp Hgb Conc 33.1 g/dL (32-36); Mean Corpuscular Hgb 31.7 pg (27.0-32.0); Mean Corpuscular Volume 95.7 fL (80-94); Mean Platelet Vol. 9.4 fl (6.2-12.0); Monocyte# 0.57 X10^3/uL; Monocyte% 9.6 % (0-10); NRBC Flagged by Analyzer 0 % (0-5); Neutrophil # 3.98 X10^3/uL (2.7-7.7); Neutrophil % 66.9 % (47-70); Platelet Count 191 K/mm3 (150-450); RBC Distribution Width CV 11.8 % (11.6-14.6); RBC Distribution Width SD 41.1 fl (35.1-43.9); Red Blood Count 3.69 M/mm3 (4.6-6.2); White Blood Count 5.9 K/mm3 (4.4-11.0)
[2019-06-28 06:05] LABS: Anion Gap 5 (5-15); BUN 12 mg/dL (7-18); BUN/Creat Ratio 12.2 RATIO (10-20); Calcium,Total 7.9 mg/dL (8.5-10.1); Chloride 116 mmol/L (98-107); Creatinine, Serum 0.98 mg/dL (0.70-1.30); EST Glomerular Filtration Rate 88 mL/min (>60); Est Glom Filt Rate - Afr Amer 107 mL/min (>60); Estimated Creatinine Clearance 97.51 ml/min; Glucose 86 mg/dL (74-106); Potassium 4.3 mmol/L (3.5-5.1); Sodium Level 144 mmol/L (136-145)
[2019-06-28 08:00] VITALS: BP 155/84; PULSE 65; RESP 16; TEMP 36.6; O2SAT 100
--- NOTE | 2019-06-28 09:19 | DCINST_ITS ---
- Discharge Diagnoses Current Active Problems: Current Active and Chronic Problems SILVESTRE (acute kidney injury) (Acute) Leukocytosis (Acute) Hyponatremia (Acute) Alcohol use disorder (Chronic) You will use the following diet at home:: Cardiac Your food should be the consistency of: Regular Your liquids should be the consistency of: Regular/Thin Discharge Activity: Return to Normal Activity Weight Bearing Status: Weight bearing as tolerated Call your doctor if you observe: Shortness of breath, Dizziness, Fainting spells Instructions: Heatstroke, How Your Kidneys Work, Kidney Disease: Understanding Fluids Additional Instructions: keep well hydrated and take regular breaks when working outside for long hours Allergies/Adverse Reactions: Allergies No Known Allergies Allergy (Verified 06/26/19 20:31) Medications to take at Discharge Lisinopril 20 mg PO DAILY 10/31/18 Primary Care Physician: Daija Art PA [Primary Care Provider] - Please follow up with your Primary Care Physician in: one week Test Results: Test results from this visit will be discussed in further detail at your follow- up appointment, if applicable. Proposed Discharge Date: 06/28/19
--- NOTE | 2019-06-28 09:24 | PCM.DC.SUM ---
Discharge Date and Diagnosis Date of Admission: 06/26/19 Date of Discharge: 06/28/19 - Primary Discharge Diagnosis Active and Suspected Problems SILVESTRE (acute kidney injury) (Acute) Leukocytosis (Acute) Hyponatremia (Acute) - Secondary Discharge Diagnosis Chronic Problems Alcohol use disorder (Chronic) HTN (hypertension) (Chronic) Hospital Course and Treatment Imaging Results: Patient is a 44-year-old male with past medical history as listed. He was admitted to the ED on 06/26/2019 with a complaint of lightheadedness, nausea and vomiting as well as myalgias with associated lightheadedness. Patient had been out working in the sun for morning until time of presentation with prolonged heat exposure. Review of systems otherwise negative. In the ED, white cell count was 15.2 and hemoglobin was 16.3. Creatinine was 2.23 with a baseline of around 0.9 and calcium was 10.4. He was admitted and managed for heatstroke and SILVESTRE due to dehydration. He was hydrated with IV fluids. Creatinine trended down and normalized. Total CPK ordered was also within normal limits. Patient remained stable and was discharged home on 07/15/2019. Patient was counseled to abstain from alcohol and also keep well-hydrated and take periodic breaks when working out in the sun for long time. Patient seen and examined prior to discharge. He had no complaints and felt well. Review of systems otherwise negative. Labs and vitals reviewed. Home medication reviewed and reconciled. o/e: Vital Signs Height 5 ft 11 in Weight: 158 lb Weight in Pounds 158.0 lbs Pulse Ox 100 Temperature 97.8 F Pulse Rate 65 Respiratory Rate 16 Blood Pressure 155/84 Blood Pressure Position Supine General: Alert, Oriented x3, Cooperative, No apparent distress HEENT: Atraumatic, PERRLA, EOMI, Normocephalic Oral: Moist Mucosa Neck: Supple, No JVD, Negative Carotid Bruits Lungs: Clear to auscultation, Normal air movement Cardiovascular: Regular rate, Regular Rhythm, Normal S1, Normal S2, No murmurs Abdomen: Bowel Sounds Present, Soft, Non Tender, Non-Distended, No Hepato-splenomegaly Extremities: No clubbing, No cyanosis, No edema, Capillary Refill Less than 3 Seconds Skin: No rashes, No breakdown Musculoskeletal: No Tenderness to Palpation of Joints or Extremities Lymphatic: No Cervical, Supraclavicular, or Inguinal Adenopathy Neurological: Cranial nerves II-XII grossly intact, Neuro grossly intact, Motor Exam 5/5 strength throughout Psych/Mental Status: Normal Affect, Appropriate, Alert and oriented to time, place, person, mood and affect Operations: None Summary of Care Provided: The patient is a 44 year old M [] - Physical Exam Vital Signs Temp Pulse Resp BP Pulse Ox 97.8 F 65 16 155/84 H 100 06/28/19 08:00 06/28/19 08:00 06/28/19 08:00 06/28/19 08:00 06/28/19 08:00 Oxygen Delivery Method Room Air Weight: 158 lb Body Mass Index (BMI) 22.0 Intake and Output for Last 24 Hours 06/26/19 06/27/19 06/28/19 23:59 23:59 23:59 Intake Total 1000 / 1000 7941.67 / 7941.67 3683.33 / 3683.33 Balance 1000 / 1000 7941.67 / 7941.67 3683.33 / 3683.33 Laboratory Tests Past 24 Hrs 06/28/19 06/28/19 05:44 05:44 WBC 5.9 RBC 3.69 L Hgb 11.7 L Hct 35.3 L MCV 95.7 H MCH 31.7 MCHC 33.1 RDW Std Deviation 41.1 RDW Coeff of David 11.8 Plt Count 191 MPV 9.4 Immature Gran % (Auto) 0.200 Neut % (Auto) 66.9 Lymph % (Auto) 22.1 [place] % (Auto) 9.6 Eos % (Auto) 0.7 Baso % (Auto) 0.5 Absolute Neuts (auto) 4.0 Absolute Lymphs (auto) 1.31 Nucleated RBC % 0 Sodium 144 Potassium 4.3 Chloride 116 H Carbon Dioxide 23.0 Anion Gap 5 BUN 12 Creatinine 0.98 Estim Creat Clear Calc 97.51 Est GFR (MDRD) Af Amer 107 Est GFR (MDRD) Non-Af 88 BUN/Creatinine Ratio 12.2 Glucose 86 Calcium 7.9 L Discharge Diet: Low fat/ Low Cholesterol Discharge Activity: Return to Normal Activity Weight Bearing Status: Weight bearing as tolerated Call your doctor if you observe: Shortness of breath, Dizziness, Fainting spells Home Medications: Medications to take at Discharge Lisinopril 20 mg PO DAILY 10/31/18 Primary Care Physician: Daija Art PA [Primary Care Provider] - Please follow up with your Primary Care Physician in: one week Patient Instructions: How Your Kidneys Work, Kidney Disease: Understanding Fluids, Heatstroke Disposition: Home Minutes spent on discharge:: 35 Patient Condition:: Stable Medical Necessity - Tobacco Use Smoking Status: Never smoker Tobacco Use: Non-smoker Meaningful Use Info Meaningful Use Diagnoses (Choose all that apply): None applicable Code Visit Inpatient E&M: 36528 Disch Hosp
== END 2019-06-28 10:45 | disposition home or self-care (01) | DRG 923 ==
LOC: ED 23:37 → MS3 23:50
PROVIDERS: Admitting Provider Family Medicine; Emergency Provider Emergency Medicine; Family Provider Physician Assistant; PCP Physician Assistant; Visit Provider Student in an Organized Health Care Education/Training Program
DX: T67.0XXA Heatstroke and sunstroke, initial encounter (principal); N17.9 Acute kidney failure, unspecified; E87.1 Hypo-osmolality and hyponatremia; I10 Essential (primary) hypertension; X30.XXXA Exposure to excessive natural heat, initial encounter; Y93.89 Activity, other specified; Y92.9 Unspecified place or not applicable; F10.10 Alcohol abuse, uncomplicated; D72.829 Elevated white blood cell count, unspecified; E86.0 Dehydration
CPT/HCPCS: 36415; 80048; 80053; 80076; 80307; 81001; 82550; 85025; 93005; 99284; J7030; J2405